=== PATIENT | male | born 1960 | race Caucasian/White ===

== ENCOUNTER 2017-01-30 11:16 | Inpatient (IN) | payer OTHER ==
[2017-01-30] MEDS ORDERED: LIDOCAINE 1% 300 MG/30 ML SDV ONE (11:21)
[2017-01-30] MEDS ORDERED: fentaNYL 100 MCG/2 ML INJ ONE ×2 (11:21→11:47)
[2017-01-30] MEDS ORDERED: MIDAZOLAM 2 MG/2 ML VIAL ONE ×2 (11:22→11:47)
[2017-01-30] MEDS ORDERED: IOPAMIDOL (ISOVUE-370) 150 ML BTL IV ONE ×2 (11:22→12:22)
[2017-01-30] MEDS ORDERED: ASPIRIN 81 MG CHEWABLE TAB PO ONE (11:24)
--- NOTE | 2017-01-30 11:28 | CPEKG ---
Heart Rate: 101 RR Interval: 594 P-R Interval: 160 QRSD Interval: 126 QT Interval: 348 QTC Interval: 452 P [place]: 60 QRS [place]: 101 T Wave [place]: -77 EKG Severity - ABNORMAL ECG - EKG Impression: SINUS TACHYCARDIA EKG Impression: PROBABLE LEFT ATRIAL ABNORMALITY EKG Impression: NONSPECIFIC INTRAVENTRICULAR CONDUCTION DELAY EKG Impression: INFERIOR INFARCT, AGE INDETERMINATE EKG Impression: ST ELEVATION TO ANTERIOR/ANTEROSEPTAL LEADS - ACUTE Electronically Signed By: Sohail Neves 02-Feb-2017 12:19:56
[2017-01-30 11:29] LABS: % IMMATURE GRANULYOCYTES 1.3 % (0.0-1.1); ABSOLUTE IMMATURE GRANULOCYTES 0.09 10^3/uL (0.00-0.10); ADD DIFF? NO; ADD MORPH? NO; ADD SCAN? NO; ATYPICAL LYMPHOCYTE FLAG 10 (0-99); FRAGMENT RBC FLAG 0 (0-99); HEMATOCRIT 48.4 % (40.0-51.0); LEFT SHIFT FLG 10 (0-99); LIPEMIA HEMOLYSIS FLAG 90 (0-99); MEAN CELL HEMOGLOBIN 30.1 pg (27.9-34.1); MEAN CELL HEMOGLOBIN CONCENTR. 35.1 g/dL (32.4-36.7); MEAN CELL VOLUME 85.8 fL (81.5-99.8); PLATELET CLUMPS FLAG 20 (0-99); PLATELET COUNT 217 10^3/uL (150-400); RED BLOOD CELL COUNT 5.64 10^6/uL (4.40-6.38); RED CELL DISTRIBUTION WIDTH 13.3 % (11.5-15.2)
--- NOTE | 2017-01-30 11:36 | EDPHY ---
H & P Time Seen by Provider: 01/30/17 11:23 HPI/ROS: Chief complaint. Chest pain HPI. Patient is a 56-year-old male comes to the emergency department by EMS with cardiac alert. He was walking the [employer] and developed substernal chest pain radiating to his neck. Some shortness of breath. He has a cardiac history and this is similar to previous cardiac problems. The patient felt well during the beginning of the race. He also has shortness of breath. Symptoms are worse with exertion and not relieved now by rest. ROS Constitutional. no fever/chills, no weakness Eyes. no problems with vision ENT. no sore throat, no nasal drainage Cardiovascular. Chest pain Respiratory. Shortness of breath Abdominal. no abdominal pain, no nausea/vomiting, no diarrhea . no problems urinating MS. no calf pain/swelling, no neck/back pain, no joint pain Skin. no rash Lymph. no swollen glands Neuro. no headache, no dizziness, no difficulty walking or with speech Past Medical/Surgical History: Coronary artery bypass graft x2. Last bypass was 2011 Social History: Single, nonsmoker, no alcohol Physical Exam: General Appearance: Alert well-developed male moderate distress vital signs are stable Eyes: Pupils equal and round no pallor or injection. ENT, Mouth: Mucous membranes are moist. Respiratory: There are no retractions, lungs are clear to auscultation. Cardiovascular: Regular rate and rhythm. Gastrointestinal: Abdomen is soft and nontender, no masses, bowel sounds normal. Neurological: Awake and alert, sensory and motor exams grossly normal. Skin: Warm and dry, no rashes. Musculoskeletal: Neck is supple nontender. Extremities symmetrical, full range of motion. Psychiatric: Patient is oriented X 3, there is no agitation. Constitutional: Initial Vital Signs Temperature (C) 36.9 C 01/30/17 11:36 Heart Rate 110 H 01/30/17 11:36 Respiratory Rate 16 01/30/17 11:36 Blood Pressure 131/79 H 01/30/17 11:36 O2 Sat (%) 94 01/30/17 11:36 Allergies/Adverse Reactions: niacin Allergy (Verified 01/30/17 14:50) Hives Home Medications: Medication Instructions Recorded ARIPiprazole [Abilify 5 mg (*)] 7.5 mg PO HS 01/30/17 FENOFIBRATE 160 mg PO HS 01/30/17 Insulin Degludec [Tresiba 60 unit SQ HS 01/30/17 Flextouch U-100] Insulin Lispro [humALOG LISPRO 100 40 unit SC TIDMEAL 01/30/17 units/ml (*)] Lisinopril [Zestril 20 mg (*)] 20 mg PO HS 01/30/17 PARoxetine HCL [Paxil] 40 mg PO HS 01/30/17 Rosuvastatin Calcium [Crestor 40mg 40 mg PO HS 01/30/17 (*)] Medical Decision Making - Diagnostics EKG Interpretation: EKG interpreted by me shows significant ST depression in lateral and anterior leads. No ST elevation. No arrhythmia. Imaging Results: Imaging Impressions Chest X-Ray 01/30/17 11:24 Impression: 1. Cardiomegaly and pulmonary venous hypertension. 2. No effusion or harshal failure. 3. Stigmata of previous open-heart surgery. One-view chest x-ray interpreted by me shows no pneumonia or pneumothorax Procedures: IV normal saline, monitor. Aspirin in the emergency department ED Course/Re-evaluation: I have consulted and discussed case with Dr. Chavez who comes to see the patient in the emergency department. The patient and I discussed EKG findings and need for admission and catheterization lab. He expresses understanding and agreement Differential Diagnosis: The patient has significant ST depression but not ST elevation. However his symptoms are consistent with ischemia. He has had previous coronary artery bypass graft x2. Critical Care Time: Critical care time exclusive procedures 30 minutes - Data Points Laboratory Results: Laboratory Results 01/30/17 11:20 01/30/17 11:20 01/30/17 01/30/17 01/30/17 11:20 11:20 11:20 WBC 6.84 10^3/uL 10^3/uL (3.80-9.50) RBC 5.64 10^6/uL 10^6/uL (4.40-6.38) Hgb 17.0 g/dL g/dL (13.7-17.5) POC Hgb Hct 48.4 % % (40.0-51.0) POC Hct MCV 85.8 fL fL (81.5-99.8) MCH 30.1 pg pg (27.9-34.1) MCHC 35.1 g/dL g/dL (32.4-36.7) RDW 13.3 % % (11.5-15.2) Plt Count 217 10^3/uL 10^3/uL (150-400) MPV 11.0 fL fL (8.7-11.7) Neut % (Auto) 60.9 % % (39.3-74.2) Lymph % (Auto) 23.7 % % (15.0-45.0) Kinney % (Auto) 11.4 % % (4.5-13.0) Eos % (Auto) 1.2 % % (0.6-7.6) Baso % (Auto) 1.5 % % (0.3-1.7) Nucleat RBC Rel Count 0.0 % % (0.0-0.2) Absolute Neuts (auto) 4.17 10^3/uL 10^3/uL (1.70-6.50) Absolute Lymphs (auto) 1.62 10^3/uL 10^3/uL (1.00-3.00) Absolute Monos (auto) 0.78 10^3/uL 10^3/uL (0.30-0.80) Absolute Eos (auto) 0.08 10^3/uL 10^3/uL (0.03-0.40) Absolute Basos (auto) 0.10 10^3/uL 10^3/uL (0.02-0.10) Absolute Nucleated RBC 0.00 10^3/uL 10^3/uL (0-0.01) Immature Gran % 1.3 % H % (0.0-1.1) Immature Gran # 0.09 10^3/uL 10^3/uL (0.00-0.10) PT 13.4 SEC SEC (12.0-15.0) INR 1.03 (0.83-1.16) APTT 26.5 SEC SEC (23.0-38.0) POC Sodium Sodium 134 mEq/L mEq/L (134-144) POC Potassium Potassium 4.3 mEq/L mEq/L (3.5-5.2) POC Chloride Chloride 99 mEq/L mEq/L (97-110) Carbon Dioxide 22 mEq/l mEq/l (22-31) Anion Gap 13 mEq/L mEq/L (8-16) POC BUN BUN 25 mg/dL H mg/dL (7-23) Creatinine 1.3 mg/dL mg/dL (0.7-1.3) POC Creatinine Estimated GFR 57 Glucose 299 mg/dL H mg/dL (70-100) POC Glucose Calcium 9.4 mg/dL mg/dL (8.5-10.4) Troponin I 0.082 ng/mL H ng/mL (0-0.034) NT-Pro-B Natriuret Pep 320 pg/mL H pg/mL (0-125) 01/30/17 11:17 WBC RBC Hgb POC Hgb 16.7 gm/dL gm/dL (14.5-17.3) Hct POC Hct 49 % % (42.8-50.6) MCV MCH MCHC RDW Plt Count MPV Neut % (Auto) Lymph % (Auto) Kinney % (Auto) Eos % (Auto) Baso % (Auto) Nucleat RBC Rel Count Absolute Neuts (auto) Absolute Lymphs (auto) Absolute Monos (auto) Absolute Eos (auto) Absolute Basos (auto) Absolute Nucleated RBC Immature Gran % Immature Gran # PT INR APTT POC Sodium 137 mEq/L mEq/L (134-144) Sodium POC Potassium 4.0 mEq/L mEq/L (3.3-5.0) Potassium POC Chloride 98 mEq/L mEq/L (96-108) Chloride Carbon Dioxide Anion Gap POC BUN 25 mg/dL H mg/dL (7-23) BUN Creatinine POC Creatinine 1.3 mg/dL mg/dL (0.8-1.5) Estimated GFR Glucose POC Glucose 305 mg/dL H mg/dL (70-100) Calcium Troponin I NT-Pro-B Natriuret Pep Medications Given: Discontinued Medications Aspirin (Aspirin) 324 mg PO EDNOW ONE Stop: 01/30/17 11:25 Last Admin: 01/30/17 11:38 Dose: Not Given Point of Care Test Results: 01/30/17 11:17 POC Sodium 137 POC Potassium 4.0 POC Chloride 98 POC BUN 25 H POC Creatinine 1.3 POC Glucose 305 H Departure - Departure Disposition: To OP Cath/Surgery Clinical Impression: Acute GA Qualifiers: Myocardial infarction ST status: non-ST elevation myocardial infarction Qualified Code(s): I21.4 - Non-ST elevation (NSTEMI) myocardial infarction Condition: Fair
[2017-01-30 11:37] LABS: INR 1.03 (0.83-1.16); PROTIME(PATIENT) 13.4 SEC (12.0-15.0)
[2017-01-30 11:38] LABS: APTT 26.5 SEC (23.0-38.0)
[2017-01-30 11:50] LABS: CALCIUM 9.4 mg/dL (8.5-10.4); CARBON DIOXIDE 22 mEq/l (22-31); CHLORIDE 99 mEq/L (97-110); CREATININE 1.3 mg/dL (0.7-1.3); GLOMERULAR FILTRATION RATE 57; GLUCOSE 299 mg/dL (70-100); SODIUM 134 mEq/L (134-144)
[2017-01-30 12:00] LABS: TROPONIN I 0.082 ng/mL (0-0.034)
[2017-01-30 12:03] LABS: ANION GAP 13 mEq/L (8-16); POTASSIUM 4.3 mEq/L (3.5-5.2)
[2017-01-30] MEDS ORDERED: HEPARIN 10,000 UNIT/10 ML MDV ONE (12:24)
[2017-01-30] MEDS ORDERED: NS 1,000 ML IV SCH (15:30)
[2017-01-30] MEDS ORDERED: PARAMETERS MISC PRN (18:27)
[2017-01-30] MEDS ORDERED: D50W 25 GM/50 ML SYR IVP PRN (18:27)
[2017-01-30] MEDS: INSULIN LISPRO 100 UNIT/ML SC SCH (18:31)
[2017-01-30] MEDS: CARVEDILOL 3.125 MG TAB PO SCH (18:31)
--- NOTE | 2017-01-30 18:35 | GCON ---
[f rep st] CONSULTATION DATE OF CONSULTATION: 01/30/2017 CHIEF COMPLAINT: We have been asked by Dr. Tucker to evaluate the patient with a chief complaint o f chest pain. HISTORY OF PRESENT ILLNESS: The patient is a 56-year-old gentleman with known coronary artery disea se who presents with a chief complaint of chest pain. The patient was in his usual state of health until part way through the [employer] when he began to experience chest pain. The patient state s he started out the race and felt just fine walking at a comfortable pace. Throughout the race, he felt the urge to try to run and when he pushed himself harder, he began to experience some chest pr essure and shortness of breath. The chest pressure and shortness of breath gradually became worse, and patient subsequently had a syncopal spell, falling to the ground. He reports, he was only out f or approximately 30 seconds, and was helped up by bystanders. After being helped up by bystanders, he walked to local EMS and reported his symptoms. EMS was activated and he was brought into the cory ency department as a cardiac alert. We were consulted to help in the further management of this p atient. The patient has known coronary artery disease. In 2002, he underwent his 1st coronary artery bypass grafting surgery at the [facility]. At that time, he had a saphenous vein graft placed to his diagonal artery and also had a MEJÍA graft placed to his left anterior descending coronary ar carrillo. In 2011, he developed recurrent anginal symptoms and subsequently underwent a 2nd bypass erin ting surgery at the [facility]. He had a free MADELYN to posterior lateral branch, a saphenous v ein graft to PDA, and a radial artery to the circumflex. The patient did well following the procedu re, until the day of admission. 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 He denied symptoms with his regular walking activity. There is no history of orthopnea or PND. T he patient denies symptoms of palpitations. PAST MEDICAL HISTORY: 1. Coronary artery disease. 2. Hypertension. 3. Hyperlipidemia. 4. Diabetes mellitus. MEDICATIONS: Please see medicine reconciliation form. 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 He does not smoke. He denies alcohol use. FAMILY HISTORY: Noncontributory. REVIEW OF SYSTEMS: 10-point review of systems is negative, except as noted in HPI. PHYSICAL EXAMINATION: GENERAL: The patient is resting in bed. He is continuing to have symptoms o f chest discomfort. He is diaphoretic. VITAL SIGNS: Temperature is afebrile. Pulse is 110, blood pressure is 131/79, respiratory rate is 16, SaO2 is 94% on 2 L nasal cannula. HEENT: Patient does have evidence of trauma along the bridge of his nose. Extraocular muscles intact. NECK: No JVD. No bruits. LUNGS: Clear to auscultation bilaterally. CARDIOVASCULAR: Regular rate and rhythm S1 , S2. Grade 2/6 holosystolic murmur is noted at the left sternal border. ABDOMEN: Obese, nontende r. Normoactive bowel sounds. No hepatosplenomegaly appreciated. EXTREMITIES: No clubbing, cyanos is, or edema. SKIN: No evidence of rash. NEURO: Patient is awake, alert and oriented x3. LABORATORY: White blood cell count is 6.84, hemoglobin 17.0, hematocrit is 48.4, platelet count is 217. INR is 1.03. Sodium 134, potassium 4.3, chloride 99, BUN 25, creatinine 1.3. Troponin 0.082. EKG demonstrates sinus rhythm, normal AXIS, normal intervals. Inferior Q-waves suggestive of previo us myocardial infarction. ST-segment elevation in lead III; however, there was no corresponding ST- elevation in II and aVF. The patient also has ST-elevation in aVR as well as V1. There is also ass ociated diffuse ST-segment depression. ASSESSMENT AND PLAN: The patient is a 56-year-old gentleman with: 1. Acute coronary syndrome. 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 His EKG demonstrates ST-segment elevation in leads III, aVR and V1, suggesting possible right-sided acute injury. The patient also has diffuse ST-segm ent depression, concerning for global ischemia. Reviewed risks and benefits of cardiac catheterizat ion for risk stratification. Will arrange to have this performed emergently. 2. Hypertension. 3. Hyperlipidemia. 4. Diabetes mellitus. /[id number]/MODL
--- NOTE | 2017-01-30 19:10 | CPIP ---
[f rep st] INVASIVE CARDIAC PROCEDURE DATE OF PROCEDURE: 01/30/2017 PROCEDURE: 1. Coronary angiography. 2. Left ventriculography. 3. Aortography. 4. Bypass graft angiography. INDICATION: 1. Acute coronary syndrome. 2. Syncope. ACCESS: Patient was prepped and draped in a sterile fashion. 1% lidocaine was used to anesthetize the right inguinal region. A 6-Czech introducer sheath was placed selectively in the right common femoral artery via modified Seldinger technique. CORONARY ANGIOGRAPHY: A 6-Czech JL4 was advanced to the left main coronary artery and images obtai kathryn. The left main coronary artery bifurcated into an LAD and circumflex coronary arteries. The mi d to distal left main coronary artery had a single discrete 80% to 90% stenosis present. The proxim al left anterior descending coronary artery had a long segmental 80% stenosis present. In the mid v essel there is a single discrete total occlusion. The circumflex coronary artery had a 100% total o cclusion in the mid vessel. A 6-Czech JR4 was advanced to the right coronary artery and images obt ained. The right coronary artery was diffusely diseased. In the proximal segment there is a single discrete 50% stenosis, in the mid vessel there is a long segmental 20% to 30% stenosis present, and in the mid to distal vessel there is a single discrete 100% total occlusion. The right coronary ar carrillo is being filled by MEJÍA at RCA collaterals, as well as right to right collaterals. BYPASS GRAFT ANGIOGRAPHY: A 6-Czech JR4 was used to engage the radial to the circumflex graft. Th e radial to circumflex graft was 100% occluded, and appeared to be a chronic total occlusion. A 6-F rench multipurpose catheter was used to engage the saphenous vein graft to right coronary artery. T he saphenous vein graft to right coronary artery was totally occluded and appeared to be a chronic t otal occlusion. A 6-Czech JR4 was used to engage the MEJÍA to LAD graft. The MEJÍA to LAD graft was widely patent. THORACIC AORTOGRAPHY: A 6-Czech pigtail catheter was advanced into the ascending aorta, and positi on verified by angiography. Images were obtained via power injection through the [employer] system. Th e ascending aorta did not appear to have any patent grafts coming off it. A 6-Czech JR4 was used t o non-selectively engage the MADELYN artery. The MADELYN artery is widely patent. In the midvessel the g raft appeared to have been harvested for bypass surgery. DESCENDING THORACIC AORTOGRAPHY: A 6-Czech pigtail catheter was placed in the descending thoracic aorta, and images were obtained via power injection through the [employer] system. There was no evidenc e of a gastroepiploic graft. LEFT VENTRICULOGRAPHY: A 6-Czech pigtail catheter is advanced into the left ventricle and images o btained. The left ventricle appeared to be normal in size with reduced systolic function. Estimate d ejection fraction was 35% to 40%. The inferior wall appeared to be akinetic. COMPLICATIONS: None. CONCLUSIONS: 1. 3-vessel coronary artery disease. 2. Patent left internal mammary artery to left anterior descending graft. 3. Occluded saphenous vein graft to right coronary artery. 4. Occluded free right internal mammary artery to left posterior lateral. 5. Occluded radial to the circumflex coronary artery. 6. Saphenous vein graft to diagonal artery is known to be occluded previously, and was not injected . /[id number]/MODL
[2017-01-30 20:21] LABS: CK-MB INTERPRETATION POSITIVE (NEGATIVE)
[2017-01-30] MEDS: LISINOPRIL 20 MG TAB PO SCH (21:13)
[2017-01-30] MEDS: ROSUVASTATIN CALCIUM 40 MG TAB PO SCH (21:13)
[2017-01-30] MEDS: FENOFIBRATE 145 MG TAB PO SCH (21:13)
[2017-01-30] MEDS: PARoxetine HCL 20 MG TAB PO SCH (21:13)
[2017-01-30] MEDS: ARIPiprazole 5 MG TAB PO SCH (21:14)
[2017-01-30] MEDS: Insulin Degludec [Tresiba Flextouch U-100] 60 UNIT SQ SCH (21:15)
[2017-01-31 03:53] LABS: % IMMATURE GRANULYOCYTES 0.7 % (0.0-1.1); ABSOLUTE IMMATURE GRANULOCYTES 0.06 10^3/uL (0.00-0.10); ABSOLUTE NRBC COUNT 0.02 10^3/uL (0-0.01); ADD DIFF? NO; ADD MORPH? NO; ADD SCAN? NO; ATYPICAL LYMPHOCYTE FLAG 0 (0-99); FRAGMENT RBC FLAG 0 (0-99); HEMATOCRIT 49.4 % (40.0-51.0); HEMOGLOBIN 17.3 g/dL (13.7-17.5); LEFT SHIFT FLG 0 (0-99); LIPEMIA HEMOLYSIS FLAG 90 (0-99); MEAN CELL HEMOGLOBIN 30.5 pg (27.9-34.1); MEAN PLATELET VOLUME 10.9 fL (8.7-11.7); NRBC-AUTO% 0.2 % (0.0-0.2); PLATELET CLUMPS FLAG 0 (0-99); PLATELET COUNT 193 10^3/uL (150-400); RED BLOOD CELL COUNT 5.68 10^6/uL (4.40-6.38); RED CELL DISTRIBUTION WIDTH 13.8 % (11.5-15.2)
[2017-01-31 04:08] LABS: ALANINE AMINOTRANSFERASE 55 IU/L (21-72); ALBUMIN 3.8 g/dL (3.5-5.0); ALKALINE PHOSPHATASE 49 IU/L (38-126); ANION GAP 7 mEq/L (8-16); ASPARTATE AMINOTRANSFERASE 124 IU/L (17-59); BILIRUBIN,TOTAL 0.8 mg/dL (0.1-1.4); BILIRUBIN-CONJUGATED 0.4 mg/dL (0.0-0.5); BILIRUBIN-UNCONJUGATED 0.4 mg/dL (0.0-1.1); CARBON DIOXIDE 26 mEq/l (22-31); CHLORIDE 105 mEq/L (97-110); CHOLESTEROL 226 mg/dL (140-220); CHOLESTEROL/HDL RATIO 7.79 RATIO (1.00-4.97); GLOMERULAR FILTRATION RATE > 60; GLUCOSE 118 mg/dL (70-100); HIGH DENSITY LIPOPROTEIN 29 mg/dL (40-65); NON-HIGH DENSITY LIPOPROTEIN 197 mg/dL (90-129); POTASSIUM 3.8 mEq/L (3.5-5.2); SODIUM 138 mEq/L (134-144); TOTAL PROTEIN 6.9 g/dL (6.3-8.2)
[2017-01-31 04:16] LABS: TRIGLYCERIDE 620 mg/dL (40-150)
[2017-01-31 04:33] LABS: CK-MB INTERPRETATION POSITIVE (NEGATIVE)
[2017-01-31] MEDS: CARVEDILOL 3.125 MG TAB PO SCH ×2 (08:19→18:05)
[2017-01-31] MEDS: INSULIN LISPRO 100 UNIT/ML SC SCH ×3 (08:23→18:03)
--- NOTE | 2017-01-31 11:34 | ECHO ---
[id number] + + [address] : : [place] [address] : : [phone] + Adult Echocardiographic Report + ----+ :Name: Martha SAHU Date: 01/31/2017 08:29 AM : : Hospital Admission Number: [id number] Location: 250: :: 1960 Gender: Male Height: 72 in : :Age: 56 yrs Race: PTNP Weight: 235 lb : :Reason For Study: Eval LV Fx : : BSA: 2.3 meters2 : :History: Chest Pain, CABG : + ----+ MMode/2D Measurements \T\ Calculations IVSd: 0.79 cm LVIDd: 5.4 cm FS: 14.6 % Ao root diam: LVPWd: 0.92 cm LVIDs: 4.6 cm EDV(Teich): 3.5 cm 140.6 ml ACS: 2.1 cm ESV(Teich): 97.3 ml EF(Teich): 30.7 % LVLd ap4: 8.7 cm SV(MOD-sp4): EDV(MOD-sp4): 56.0 ml 168.0 ml LVLs ap4: 7.9 cm ESV(MOD-sp4): 112.0 ml EF(MOD-sp4): 33.3 % Normal Measurement Values: + + :LVIDd (3.5-5.7cm) IVSd (0.6-1.1cm) LVPWd (0.6-1.1cm) Aortic Root (2.0-3.7cm)Left Atrium (1.5-4.0cm): :LV Vol(d) (76-115ml) LV Vol(s) (29-48ml) Ejec Fraction (50-65%)PV Tank (0.6- 1.2m/s) TV Tank (0.4-1.0m/s) : :MV E Tank (0.8-1.0m/s)MV A Tank (0.3-1.0m/s)LVOT Tank (0.7-1.2m/s) Asc Ao Tank ( 0.9-1.8m/s) : + + Doppler Measurements \T\ Calculations MV E max tank: Ao V2 max: LV V1 max: PA V2 max: 96.7 cm/sec 122.2 cm/sec 96.3 cm/sec 104.5 cm/sec MV A max tank: Ao max P.0 mmHgLV V1 max PG: PA max P.4 mmHg 76.5 cm/sec 3.7 mmHg MV E/A: 1.3 Left Ventricle The left ventricle is normal in size. There is normal left ventricular wall thickness. There is basilar anteroseptal akinesis, basilar to mid inferolateral hypokinesis. There is inferior hypokinesis. Ejection Fraction = 35-40%. Right Ventricle The right ventricle is normal in size and function. Atria The left atrial size is normal. Right atrial size is normal. Mitral Valve The mitral valve is normal in structure and function. There is no evidence of mitral valve prolapse. There is no mitral valve stenosis. There is no mitral regurgitation noted. Tricuspid Valve Normal tricuspid valve. No tricuspid regurgitation. Aortic Valve The aortic valve is normal in structure and function. The aortic valve is trileaflet. There is no aortic stenosis. There is no aortic insufficiency. Pulmonic Valve The pulmonic valve is normal in structure and function. There is no pulmonic valvular regurgitation. Great Vessels The aortic root is normal size. Pericardium/Pleural There is no pericardial effusion. Conclusion A complete two-dimensional transthoracic echocardiogram was performed (2D, M-mode, Doppler and color flow Doppler). There is basilar anteroseptal akinesis, basilar to mid inferolateral hypokinesis. There is inferior hypokinesis Ejection Fraction = 35-40%. The mitral valve is normal in structure and function. The aortic valve is normal in structure and function. There is no pericardial effusion. Final Reading Physician: Darcie Sorenson signed on 01/31/2017 11:32 AM Ordering Physician: Sohail Chavez Performed By: Kenneth Gibbs, LEANACS
[2017-01-31] MEDS ORDERED: ACETAMINOPHEN 325 MG TAB PO PRN (14:13)
[2017-01-31] MEDS ORDERED: NITROGLYCERIN 0.4 MG BTL SL PRN (16:27)
[2017-01-31] MEDS ORDERED: TEMAZEPAM 15 MG CAP PO PRN (16:27)
--- NOTE | 2017-01-31 16:32 | SOAPPROG ---
[facility] Progress Note Assessment/Plan: Assessment: 1. Status post syncope/aborted sudden . 2. STEMI myocardial infarction. 3. Severe grindstone three-vessel coronary artery disease with patent mammary artery to the LAD. 4. Ischemic cardiomyopathy ejection fraction 35-40%. 5. Hyperlipidemia characterized by elevation in triglycerides, low LDL. 6. Type 1 diabetes Impression: After reviewing diagnostic angiograms in reviewing metabolic profile. Would recommend attempted complete revascularization with PCI and stenting of the left main coronary artery into the circumflex. This with optimal medical therapy would create the best result at this time. Pending improvement in LV function considerations for ICD. In the short term would recommend life vest in light of presentation. Discussed this with the patient' s family. Will proceed in the morning. Plan: Optimization of medical therapy. Up titration of Coreg. Optimization of statin therapy. PCI and stenting of the left main coronary artery. Life vest. 01/31/17 16:33 01/31/17 16:35 Subjective: Patient doing well status post presentation yesterday with angina and cardiac syncope. No further cardiac events. Telemetry overnight has been stable. Patient denies chest pain, shortness of breath, PND, orthopnea. 45 minutes spent today discussing patient's past medical history. Cardiac review of systems is negative for chest pain, shortness of breath, PND , orthopnea, palpitations, syncope, near syncope, edema. Objective: Medications Generic Name Dose Route Start Last Admin Trade Name Freq PRN Reason Stop Dose Admin Fenofibrate 145 mg 01/30/17 21:00 01/30/17 21:13 Tricor PO 07/29/17 20:59 145 mg HS [facility] Carvedilol 3.125 mg 01/30/17 18:00 01/31/17 08:19 Coreg PO 07/29/17 17:59 3.125 mg BIDMEAL DANIEL Lisinopril 20 mg 01/30/17 21:00 01/30/17 21:13 Zestril PO 07/29/17 20:59 20 mg HS DANIEL Rosuvastatin Calcium 40 mg 01/30/17 21:00 01/30/17 21:13 Crestor PO 07/29/17 20:59 40 mg HS [facility] Vital Signs Temp Pulse Resp BP Pulse Ox 36.1 C 63 19 110/60 91 L 01/31/17 08:00 01/31/17 16:00 01/31/17 16:00 01/31/17 16:00 01/31/17 16:00 Laboratory Results 01/31/17 03:40 01/31/17 03:40 01/30/17 01/31/17 02/01/17 05:59 05:59 05:59 Intake Total 2330 Balance 2330 PT 13.4 SEC (12.0-15.0) 01/30/17 11:20 INR 1.03 (0.83-1.16) 01/30/17 11:20 Laboratory Tests 01/30/17 01/30/17 01/31/17 11:20 19:15 03:40 Creatine Kinase 586 H 532 H Troponin I 0.082 H NT-Pro-B Natriuret Pep 320 H Triglycerides 620 H Cholesterol 226 H HDL Cholesterol 29 L - Time Spent With Patient Time Spent With Patient: 45 minutes Physical Exam - Physical Exam General Appearance: alert, no apparent distress EENT: PERRL/EOMI Neck: non-tender Respiratory: chest non-tender, lungs clear Cardiac/Chest: normal peripheral pulses, regular rate, rhythm, No edema, No gallop, No JVD Peripheral Pulses: 1+: carotid (R), carotid (L) Abdomen: normal bowel sounds, non-tender, soft Back: Normal inspection Skin: normal color, warm/dry, No cyanosis Lymphatic: no adenopathy Extremities: normal range of motion, No pedal edema, No calf tenderness Neuro/Psych: no motor/sensory deficits, alert, normal mood/affect, oriented x 3 ICD10 Worksheet Patient Problems: Problems Problem Status Onset Acute AK Acute Review of Systems - Review of Systems Constitutional: denies: chills, fever EENTM: no symptoms reported Respiratory: no symptoms reported Cardiac: no symptoms reported Gastrointestinal/Abdominal: no symptoms reported Genitourinary: no symptoms Musculoskelatal: no symptoms Skin: no symptoms Neurological: no symptoms Hematologic/Lymphatic: no symptoms reported Immunologic/allergic: no symptoms reported Past Medical History - Medical/Surgical History Hx Asthma: No Hx Chronic Respiratory Disease: No Hx Cardiac Disease: Yes Hx Diabetes: Yes Hx Renal Disease: No Hx Alcoholism: No Hx Cirrhosis: No Hx HIV/AIDS: No Hx Splenectomy or Spleen Trauma: No Other PMH: CABG, DM2, pancreatitis - Social History Smoking Status: Never smoked
[2017-01-31] MEDS: PARoxetine HCL 20 MG TAB PO SCH (21:29)
[2017-01-31] MEDS: ROSUVASTATIN CALCIUM 40 MG TAB PO SCH (21:29)
[2017-01-31] MEDS: ARIPiprazole 5 MG TAB PO SCH (21:29)
[2017-01-31] MEDS: FENOFIBRATE 145 MG TAB PO SCH (21:29)
[2017-01-31] MEDS: LISINOPRIL 20 MG TAB PO SCH (21:29)
[2017-01-31] MEDS: Insulin Degludec [Tresiba Flextouch U-100] 60 UNIT SQ SCH (21:30)
[2017-02-01] MEDS ORDERED: diphenhydrAMINE 25 MG CAP PO ONE (06:00)
[2017-02-01] MEDS ORDERED: ASPIRIN EC 325 MG TAB PO ONE (06:00)
[2017-02-01] MEDS ORDERED: DIAZEPAM 5 MG TAB PO ONE (06:00)
[2017-02-01 06:09] LABS: % IMMATURE GRANULYOCYTES 0.4 % (0.0-1.1); ABSOLUTE IMMATURE GRANULOCYTES 0.03 10^3/uL (0.00-0.10); ADD DIFF? NO; ADD MORPH? NO; ADD SCAN? NO; ATYPICAL LYMPHOCYTE FLAG 0 (0-99); FRAGMENT RBC FLAG 0 (0-99); HEMATOCRIT 45.2 % (40.0-51.0); HEMOGLOBIN 15.3 g/dL (13.7-17.5); LEFT SHIFT FLG 0 (0-99); LIPEMIA HEMOLYSIS FLAG 90 (0-99); MEAN CELL HEMOGLOBIN 29.5 pg (27.9-34.1); MEAN CELL HEMOGLOBIN CONCENTR. 33.8 g/dL (32.4-36.7); MEAN CELL VOLUME 87.1 fL (81.5-99.8); MEAN PLATELET VOLUME 11.4 fL (8.7-11.7); PLATELET CLUMPS FLAG 10 (0-99); PLATELET COUNT 176 10^3/uL (150-400); RED BLOOD CELL COUNT 5.19 10^6/uL (4.40-6.38); RED CELL DISTRIBUTION WIDTH 13.9 % (11.5-15.2)
[2017-02-01 06:17] LABS: APTT 26.9 SEC (23.0-38.0); INR 1.11 (0.83-1.16); PROTIME(PATIENT) 14.2 SEC (12.0-15.0)
[2017-02-01 06:59] LABS: ANION GAP 6 mEq/L (8-16); CALCIUM 8.5 mg/dL (8.5-10.4); CARBON DIOXIDE 24 mEq/l (22-31); CHLORIDE 105 mEq/L (97-110); CHOLESTEROL 161 mg/dL (140-220); CREATININE 0.8 mg/dL (0.7-1.3); GLOMERULAR FILTRATION RATE > 60; GLUCOSE 242 mg/dL (70-100); HIGH DENSITY LIPOPROTEIN 23 mg/dL (40-65); MAGNESIUM 1.7 mg/dL (1.6-2.3); NON-HIGH DENSITY LIPOPROTEIN 138 mg/dL (90-129); POTASSIUM 4.5 mEq/L (3.5-5.2); SODIUM 135 mEq/L (134-144)
[2017-02-01 07:03] LABS: TRIGLYCERIDE 451 mg/dL (40-150)
[2017-02-01] MEDS ORDERED: LIDOCAINE 1% 300 MG/30 ML SDV ONE (07:37)
[2017-02-01] MEDS ORDERED: VERAPAMIL 5 MG/2 ML VIAL ONE (07:38)
[2017-02-01] MEDS ORDERED: IOPAMIDOL (ISOVUE-370) 150 ML BTL IV ONE ×2 (07:38→08:40)
[2017-02-01] MEDS ORDERED: HEPARIN 10,000 UNIT/10 ML MDV ONE ×2 (07:38→08:26)
[2017-02-01] MEDS ORDERED: MIDAZOLAM 2 MG/2 ML VIAL ONE (07:46)
[2017-02-01] MEDS ORDERED: fentaNYL 100 MCG/2 ML INJ ONE (07:46)
[2017-02-01] MEDS ORDERED: NITROGLYCERIN 1,500 MCG/15 ML VIAL MISC ONE (08:49)
[2017-02-01] MEDS ORDERED: PRASUGREL HCL 10 MG TAB ONE (09:09)
[2017-02-01] MEDS ORDERED: ATROPINE SULFATE 1 MG/10 ML SYR IVP PRN (09:34)
[2017-02-01] MEDS ORDERED: PRASUGREL HCL 10 MG TAB PO ONE (09:34)
[2017-02-01] MEDS ORDERED: ONDANSETRON 4 MG/2 ML VIAL IVP PRN (09:34)
--- NOTE | 2017-02-01 09:34 | PDDXCAT ---
Diagnostic Cath Note - . 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 Intravascular ultrasound pre intervention. Indications: ST segment elevation myocardial infarction suggesting left main etiology. After reviewing diagnostic angiogram by my partner elected to proceed with elective stenting of the left main proximal circumflex today. Patient was brought to the cardiac catheterization lab in the fasting state. The right radial artery site was sterilely prepped and draped. 6 Bengali slick sheath was inserted in the right radial artery. Patient was administered verapamil and heparin. The left main coronary artery was successfully intubated using a left extra support radial guide catheter. A standard JL4 catheter did not fit well. The lesion was wired initially using a 0.014 intuition wire. Pre dilatation of the left main was performed with a 2 mm balloon. Repeat angiogram showed JAZMINE grade 3 flow. Intravascular ultrasound was attempted but the wire kinked. The entire system was withdrawn. The lesion was rewired using a 0.014 luge wire. Intravascular ultrasound revealed left main to be 4 mm. Proximal circumflex was 85% stenosis. There was diffuse distal disease. It was elected to proceed with distal stenting 1st a 3.0 x 12 mm synergy stent was placed in the circumflex origin. It was deployed using a single inflation. A 4.0 x 8 mm synergy stent was placed across the left main stenosis and deployed in a single inflation. Repeat angiogram showed JAZMINE grade 3 flow. Patient was administered intracoronary nitroglycerin. Final orthogonal angiograms were obtained. Patient has taken recovery for continued care. Conclusions: Successful revascularization with PCI and stenting of the left main and proximal circumflex. Patient will be continued on current medical therapy with dual antiplatelet therapy for 1 year. Reassessment of LV function at 40 days and considerations for ICD. Discharge with LifeVest. Patient Problems: Problems Problem Status Onset Acute [place] Acute
--- NOTE | 2017-02-01 09:40 | SOAPPROG ---
[facility] Progress Note Assessment/Plan: Assessment: 1. Status post syncope/aborted sudden . 2. STEMI myocardial infarction. 3. Severe [place] three-vessel coronary artery disease with patent mammary artery to the LAD. Successful PCI and stenting of the left main and proximal circumflex 02/01. 4. Ischemic cardiomyopathy ejection fraction 35-40%. 5. Hyperlipidemia characterized by elevation in triglycerides, low LDL. 6. Type 1 diabetes Impression: After reviewing diagnostic angiograms in reviewing metabolic profile. Would recommend attempted complete revascularization with PCI and stenting of the left main coronary artery into the circumflex. This with optimal medical therapy would create the best result at this time. Pending improvement in LV function considerations for ICD. In the short term would recommend life vest in light of presentation. Discussed this with the patient' s family. Will proceed in the morning. Plan: Optimization of medical therapy. Up titration of Coreg. Optimization of statin therapy. PCI and stenting of the left main coronary artery. Life vest. 01/31/17 16:35 Impression: Successful revascularization today of the left main and proximal circumflex. Uneventful hall monitor overnight. Patient is overall feeling well. Plan to continue dual antiplatelet therapy for 1 year. Increased beta-martin today. Awaiting decision regarding LifeVest. Plan: Continue dual antiplatelet therapy for 1 year. Up titrate beta-martin. Life vest for boarded sudden and ischemic cardiomyopathy status post left main stenting. Discussed weight loss today and aggressive treatment of hyperlipidemia particular elevated triglycerides. Will begin high-dose fish oil today. 02/01/17 09:37 Subjective: Doing well. Risks and benefits of PCI have been discussed. Life vest has been discussed. There is some concern regarding payment for device. Social Work is helping. Cardiac review of systems is negative for chest pain, shortness of breath, PND , orthopnea, palpitations, syncope, near syncope, edema. Objective: Medications Generic Name Dose Route Start Last Admin Trade Name Freq PRN Reason Stop Dose Admin Carvedilol 3.125 mg 01/30/17 18:00 01/31/17 18:05 Coreg PO 07/29/17 17:59 3.125 mg BIDMEAL DANIEL Fenofibrate 145 mg 01/30/17 21:00 01/31/17 21:29 Tricor PO 07/29/17 20:59 145 mg HS DANIEL Lisinopril 20 mg 01/30/17 21:00 01/31/17 21:29 Zestril PO 07/29/17 20:59 20 mg HS DANIEL Vital Signs Temp Pulse Resp BP Pulse Ox 36.4 C 73 16 101/62 95 02/01/17 04:00 02/01/17 04:00 02/01/17 04:00 02/01/17 04:00 02/01/17 04:00 Laboratory Results 02/01/17 05:45 02/01/17 05:45 01/31/17 02/01/17 02/02/17 05:59 05:59 05:59 Intake Total 2330 650 Balance 2330 650 PT 14.2 SEC (12.0-15.0) 02/01/17 05:45 INR 1.11 (0.83-1.16) 02/01/17 05:45 Laboratory Tests 02/01/17 05:45 Creatinine 0.8 Physical Exam - Physical Exam General Appearance: alert, no apparent distress EENT: PERRL/EOMI Neck: non-tender, full range of motion Respiratory: chest non-tender, lungs clear Cardiac/Chest: normal peripheral pulses, regular rate, rhythm, No edema, No gallop, No JVD Peripheral Pulses: 1+: carotid (R), carotid (L), femoral (R), femoral (L) Abdomen: normal bowel sounds, non-tender Back: Normal inspection Skin: normal color, warm/dry Extremities: No pedal edema, No calf tenderness Neuro/Psych: no motor/sensory deficits, alert, normal mood/affect ICD10 Worksheet Patient Problems: Problems Problem Status Onset Acute [place] Acute Past Medical History - Medical/Surgical History Hx Asthma: No Hx Chronic Respiratory Disease: No Hx Cardiac Disease: Yes Hx Diabetes: Yes Hx Renal Disease: No Hx Alcoholism: No Hx Cirrhosis: No Hx HIV/AIDS: No Hx Splenectomy or Spleen Trauma: No Other PMH: CABG, DM2, pancreatitis - Social History Smoking Status: Never smoked Alcohol Use: None Review of Systems - Review of Systems Constitutional: no symptoms reported EENTM: no symptoms reported Respiratory: no symptoms reported Cardiac: no symptoms reported Gastrointestinal/Abdominal: no symptoms reported Genitourinary: no symptoms Musculoskelatal: no symptoms Skin: no symptoms Neurological: no symptoms Hematologic/Lymphatic: no symptoms reported
--- NOTE | 2017-02-01 09:48 | CPEKG ---
Heart Rate: 70 RR Interval: 857 P-R Interval: 164 QRSD Interval: 114 QT Interval: 392 QTC Interval: 423 P [place]: 47 QRS [place]: 33 T Wave [place]: 43 EKG Severity - ABNORMAL ECG - EKG Impression: SINUS RHYTHM EKG Impression: PROBABLE LEFT ATRIAL ABNORMALITY EKG Impression: NONSPECIFIC INTRAVENTRICULAR CONDUCTION DELAY EKG Impression: PROBABLE INFERIOR INFARCT, AGE INDETERMINATE EKG Impression: ST ELEVATION TO ANTERIOR/ANTEROSEPTAL LEADS Electronically Signed By: Sohail Neves 02-Feb-2017 12:20:21
[2017-02-01] MEDS: INSULIN LISPRO 100 UNIT/ML SC SCH ×3 (10:51→17:21)
[2017-02-01] MEDS ORDERED: LORazepam 0.5 MG TAB PO ONE ×2 (11:00→12:15)
[2017-02-01] MEDS: CARVEDILOL 3.125 MG TAB PO SCH (11:31)
--- NOTE | 2017-02-01 13:06 | CPEKG ---
Heart Rate: 103 RR Interval: 583 P-R Interval: 192 QRSD Interval: 118 QT Interval: 356 QTC Interval: 466 P [place]: 53 QRS [place]: 48 T Wave [place]: 241 EKG Severity - ABNORMAL ECG - EKG Impression: SINUS TACHYCARDIA EKG Impression: PROBABLE LEFT ATRIAL ABNORMALITY EKG Impression: NONSPECIFIC INTRAVENTRICULAR CONDUCTION DELAY EKG Impression: PROBABLE INFERIOR INFARCT, AGE INDETERMINATE EKG Impression: ANTERIOR ST ELEVATION NOTED Electronically Signed By: Sohail Neves 02-Feb-2017 12:20:47
[2017-02-01] MEDS ORDERED: ASPIRIN 325 MG TAB ONE (13:18)
[2017-02-01] MEDS ORDERED: FUROSEMIDE 20 MG/2 ML VIAL ONE (13:30)
[2017-02-01] MEDS ORDERED: FUROSEMIDE 20 MG/2 ML VIAL IVP ONE (13:47)
[2017-02-01] MEDS ORDERED: LORazepam 1 MG TAB PO ONE (13:47)
--- NOTE | 2017-02-01 13:49 | PDCONSULT ---
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 Ayush status post left main stenting with stents into the ione circumflex. Patient complained of episodes of shortness of breath. Initially thought it was a panic attack. He has had these in the past. Patient has been administered a single nitroglycerin and Ativan and is feeling a bit better on my arrival. Patient denies angina which she is well-versed in. He has no PND orthopnea. He is not currently diaphoretic. Physical examination vital signs as above. There is no JVP 90 degrees. Chest reveals bibasilar rales. Cardiac exam reveals no gallop. Puncture site is stable without ecchymosis erythema. Stat EKG reveals sinus rhythm ST elevation in AV are has resolved. Minimal ST depression is seen laterally. This is improved from admission EKG. Stat echocardiogram reveals reduced LV systolic function unchanged. Mitral regurgitation has improved. There is no pericardial effusion. Impression: Episodes of shortness of breath of uncertain etiology. I do not think this represents complication from recent PCI and stenting of the left main circumflex. EKG does not suggest acute injury pattern. He does have a history of intermittent panic attacks which may be etiology here. Exam does suggest bibasilar rales which could be some pulmonary edema after recent dye load and left main stenting. Recommendation: Ativan for anxiety. Lasix for pulmonary edema. Serial follow-up on telemetry. Low tolerance for repeat coronary angiogram.
--- NOTE | 2017-02-01 14:52 | ECHO ---
[id number] + + [address] : : [facility] [address] : : [phone] + Adult Echocardiographic Report + ----+ :Name: Martha SAHU Date: 02/01/2017 02:05 PM : : Hospital Admission Number: [id number] Location: 200: :: 1960 Gender: Male : :Age: 56 yrs Race: WH,PTNP : :Reason For Study: Eval LV Fx : :History: Abnormal EKG : + ----+ Left Ventricle There is basilar anteroseptal akinesis, basilar to mid inferolateral hypokinesis. There is inferior hypokinesis. Ejection Fraction = 35-40%. Mitral Valve There is mild mitral regurgitation. Pericardium/Pleural There is no pericardial effusion. Conclusion This is a limited echo to eval LV Fx. There is basilar anteroseptal akinesis, basilar to mid inferolateral hypokinesis. There is inferior hypokinesis. Ejection Fraction = 35-40%. There is no pericardial effusion. There is mild mitral regurgitation. Final Reading Physician: Darcie Singleton signed on 02/01/2017 02:50 PM Ordering Physician: Sohail Chavez Performed By: Kenneth Gibbs, LEANACS
[2017-02-01] MEDS: CARVEDILOL 6.25 MG TAB PO SCH (17:25)
[2017-02-01] MEDS: PARoxetine HCL 20 MG TAB PO SCH (22:06)
[2017-02-01] MEDS: FENOFIBRATE 145 MG TAB PO SCH (22:06)
[2017-02-01] MEDS: LISINOPRIL 20 MG TAB PO SCH (22:06)
[2017-02-01] MEDS: ROSUVASTATIN CALCIUM 40 MG TAB PO SCH (22:06)
[2017-02-01] MEDS: Insulin Degludec [Tresiba Flextouch U-100] 60 UNIT SQ SCH (22:07)
[2017-02-01] MEDS: ARIPiprazole 5 MG TAB PO SCH (22:07)
[2017-02-02 04:57] LABS: % IMMATURE GRANULYOCYTES 0.5 % (0.0-1.1); ABSOLUTE IMMATURE GRANULOCYTES 0.04 10^3/uL (0.00-0.10); ADD DIFF? NO; ADD MORPH? NO; ADD SCAN? NO; ATYPICAL LYMPHOCYTE FLAG 0 (0-99); FRAGMENT RBC FLAG 0 (0-99); HEMATOCRIT 48.6 % (40.0-51.0); HEMOGLOBIN 16.3 g/dL (13.7-17.5); LEFT SHIFT FLG 0 (0-99); LIPEMIA HEMOLYSIS FLAG 80 (0-99); MEAN CELL HEMOGLOBIN 29.8 pg (27.9-34.1); MEAN CELL HEMOGLOBIN CONCENTR. 33.5 g/dL (32.4-36.7); MEAN CELL VOLUME 88.8 fL (81.5-99.8); MEAN PLATELET VOLUME 11.1 fL (8.7-11.7); PLATELET CLUMPS FLAG 0 (0-99); PLATELET COUNT 182 10^3/uL (150-400); RED BLOOD CELL COUNT 5.47 10^6/uL (4.40-6.38)
[2017-02-02 05:00] LABS: APTT 28.2 SEC (23.0-38.0); INR 1.11 (0.83-1.16); PROTIME(PATIENT) 14.2 SEC (12.0-15.0)
[2017-02-02] MEDS ORDERED: diphenhydrAMINE 25 MG CAP PO ONE (06:00)
[2017-02-02] MEDS ORDERED: BACITRACIN IRRIGATION/NS 50,000 UNITS/1,000 ML BTL IRR ONE (06:00)
[2017-02-02] MEDS ORDERED: DIAZEPAM 5 MG TAB PO ONE (06:00)
[2017-02-02] MEDS ORDERED: NS 1,000 ML IV ONE (06:00)
[2017-02-02 06:21] LABS: ALANINE AMINOTRANSFERASE 45 IU/L (21-72); ALBUMIN 3.4 g/dL (3.5-5.0); ALKALINE PHOSPHATASE 46 IU/L (38-126); ANION GAP 8 mEq/L (8-16); ASPARTATE AMINOTRANSFERASE 39 IU/L (17-59); BILIRUBIN,TOTAL 0.8 mg/dL (0.1-1.4); CALCIUM 8.9 mg/dL (8.5-10.4); CARBON DIOXIDE 25 mEq/l (22-31); CHLORIDE 105 mEq/L (97-110); GLOMERULAR FILTRATION RATE > 60; GLUCOSE 181 mg/dL (70-100); LACTATE DEHYDROGENASE 746 IU/L (313-618); MAGNESIUM 1.9 mg/dL (1.6-2.3); POTASSIUM 4.4 mEq/L (3.5-5.2); SODIUM 138 mEq/L (134-144)
[2017-02-02] MEDS ORDERED: ceFAZolin 2 GM/DEXTROSE 100 ML IV ONE (07:00)
--- NOTE | 2017-02-02 07:50 | SOAPPROG ---
[facility] Progress Note Assessment/Plan: Assessment: 1. Status post syncope/aborted sudden . 2. STEMI myocardial infarction. 3. Severe [place] three-vessel coronary artery disease with patent mammary artery to the LAD. Successful PCI and stenting of the left main and proximal circumflex 02/01. 4. Ischemic cardiomyopathy ejection fraction 35-40%. 5. Hyperlipidemia characterized by elevation in triglycerides, low LDL. 6. Type 1 diabetes Impression: After reviewing diagnostic angiograms in reviewing metabolic profile. Would recommend attempted complete revascularization with PCI and stenting of the left main coronary artery into the circumflex. This with optimal medical therapy would create the best result at this time. Pending improvement in LV function considerations for ICD. In the short term would recommend life vest in light of presentation. Discussed this with the patient' s family. Will proceed in the morning. Plan: Optimization of medical therapy. Up titration of Coreg. Optimization of statin therapy. PCI and stenting of the left main coronary artery. Life vest. 01/31/17 16:35 Impression: Successful revascularization today of the left main and proximal circumflex. Uneventful campus monitor overnight. Patient is overall feeling well. Plan to continue dual antiplatelet therapy for 1 year. Increased beta-martin today. Awaiting decision regarding LifeVest. Plan: Continue dual antiplatelet therapy for 1 year. Up titrate beta-martin. Life vest for boarded sudden and ischemic cardiomyopathy status post left main stenting. Discussed weight loss today and aggressive treatment of hyperlipidemia particular elevated triglycerides. Will begin high-dose fish oil today. 02/01/17 09:37 Impression: Day 4 status post aborted sudden in the setting of global ischemia non-Q-wave myocardial infarction. Patient is doing well post revascularization yesterday with a brief episode of either anxiety versus mild pulmonary edema. He has responded well to Lasix and increase in anti anxiety therapy. He is awaiting ICD today. Plan: Continue dual antiplatelet therapy. Low-dose diuretic therapy. ICD today in light of incomplete revascularization and aborted sudden . High-dose fish oil associated with weight loss. 02/02/17 07:47 Subjective: Doing well, no further episodes of shortness of breath after diuretic therapy. He had no PND orthopnea. He has had no syncope or near syncope. He denies chest pain. Denies fever or chills Objective: Vital Signs Temp Pulse Resp BP Pulse Ox 36.9 C 79 16 109/61 94 02/02/17 04:00 02/02/17 04:00 02/02/17 04:00 02/02/17 04:00 02/02/17 04:00 Laboratory Results 02/02/17 03:26 02/02/17 03:26 02/01/17 02/02/17 02/03/17 05:59 05:59 05:59 Intake Total 650 950 Output Total 1875 Balance 650 -925 PT 14.2 SEC (12.0-15.0) 02/02/17 03:26 INR 1.11 (0.83-1.16) 02/02/17 03:26 Physical Exam - Physical Exam General Appearance: alert, no apparent distress EENT: PERRL/EOMI, normal ENT inspection Neck: non-tender, full range of motion Respiratory: chest non-tender, rales, No lungs clear Cardiac/Chest: normal peripheral pulses, No edema, No gallop, No JVD Abdomen: normal bowel sounds, non-tender, soft Back: Normal inspection Skin: normal color, warm/dry Lymphatic: no adenopathy Extremities: normal range of motion Neuro/Psych: no motor/sensory deficits, alert, normal mood/affect ICD10 Worksheet Patient Problems: Problems Problem Status Onset Acute [place] Acute Review of Systems - Review of Systems Constitutional: denies: chills, fever EENTM: no symptoms reported Respiratory: no symptoms reported Cardiac: no symptoms reported Gastrointestinal/Abdominal: no symptoms reported Genitourinary: no symptoms Musculoskelatal: no symptoms Skin: no symptoms Neurological: no symptoms Hematologic/Lymphatic: no symptoms reported Immunologic/allergic: no symptoms reported All Other Systems: Reviewed and Negative
[2017-02-02] MEDS: CARVEDILOL 6.25 MG TAB PO SCH ×2 (07:53→18:22)
[2017-02-02] MEDS: PRASUGREL HCL 10 MG TAB PO SCH (07:54)
--- NOTE | 2017-02-02 08:46 | CPEKG ---
Heart Rate: 70 RR Interval: 857 P-R Interval: 208 QRSD Interval: 118 QT Interval: 400 QTC Interval: 432 P [place]: 45 QRS [place]: 35 EKG Severity - ABNORMAL ECG - EKG Impression: SINUS RHYTHM EKG Impression: PROBABLE LEFT ATRIAL ABNORMALITY EKG Impression: NONSPECIFIC INTRAVENTRICULAR CONDUCTION DELAY EKG Impression: PROBABLE INFERIOR INFARCT, AGE INDETERMINATE EKG Impression: ANTERIOR ST ELEVATION CONTINUES TO BE NOTED Electronically Signed By: Sohail Neves 02-Feb-2017 12:21:06
[2017-02-02] MEDS ORDERED: LIDOCAINE 1% 300 MG/30 ML SDV ONE ×2 (11:28→14:20)
[2017-02-02] MEDS ORDERED: ISOPROTERENOL HCL 0.2 MG/ML 5ML AMP ONE (11:28)
[2017-02-02] MEDS ORDERED: HEPARIN 10,000 UNIT/10 ML MDV ONE (11:28)
[2017-02-02] MEDS ORDERED: BUPIVACAINE 0.5% 30 ML SDV ONE ×2 (11:29→14:20)
[2017-02-02] MEDS: ASPIRIN EC 325 MG TAB PO SCH (12:32)
[2017-02-02] MEDS: INSULIN LISPRO 100 UNIT/ML SC SCH ×2 (12:33→18:23)
[2017-02-02] MEDS: FUROSEMIDE 40 MG TAB PO SCH (12:33)
[2017-02-02] MEDS: OMEGA-3 ETHYL EST-LOVAZA 1 GM CAP PO SCH ×2 (12:34→23:01)
[2017-02-02] MEDS ORDERED: MIDAZOLAM 2 MG/2 ML VIAL ONE ×2 (13:19→13:39)
[2017-02-02] MEDS ORDERED: fentaNYL 100 MCG/2 ML INJ ONE ×3 (13:21→15:42)
[2017-02-02] MEDS ORDERED: DEXMEDETOMIDINE HCL 200 MCG/2 ML VIAL IV ONE (13:25)
[2017-02-02] MEDS ORDERED: PROPOFOL/EMULSION 500 MG/50 ML BOTTLE IV ONE (13:26)
[2017-02-02] MEDS ORDERED: DIAZEPAM 10 MG/2 ML SYR ONE (14:08)
[2017-02-02] MEDS ORDERED: LIDO/EPI 1% **for epidural** 30 ML SDV ONE (14:20)
[2017-02-02] MEDS ORDERED: LIDOCAINE 2% 5 ML SDV ONE (15:09)
[2017-02-02] MEDS ORDERED: PHENYLEPHRINE HCL 100 MCG/ML SYR ONE ×2 (15:09→16:00)
[2017-02-02] MEDS ORDERED: OXYCODONE/APAP 5/325 TAB PO PRN (16:10)
--- NOTE | 2017-02-02 16:55 | CPEKG ---
Heart Rate: 68 RR Interval: 882 P-R Interval: 204 QRSD Interval: 116 QT Interval: 380 QTC Interval: 405 P [place]: 25 QRS [place]: 35 T Wave [place]: 36 EKG Severity - ABNORMAL ECG - EKG Impression: SINUS RHYTHM EKG Impression: NONSPECIFIC INTRAVENTRICULAR CONDUCTION DELAY EKG Impression: PROBABLE INFERIOR INFARCT, AGE INDETERMINATE Electronically Signed By: Sohail Neves 02-Feb-2017 20:54:25
[2017-02-02 17:32] LABS: ANION GAP 8 mEq/L (8-16); CALCIUM 8.7 mg/dL (8.5-10.4); CARBON DIOXIDE 26 mEq/l (22-31); CHLORIDE 103 mEq/L (97-110); CREATININE 1.4 mg/dL (0.7-1.3); GLOMERULAR FILTRATION RATE 52; GLUCOSE 170 mg/dL (70-100); MAGNESIUM 1.8 mg/dL (1.6-2.3); POTASSIUM 5.8 mEq/L (3.5-5.2); SODIUM 137 mEq/L (134-144)
[2017-02-02] MEDS: traMADol 50 MG TAB PO PRN (18:04)
[2017-02-02] MEDS: ROSUVASTATIN CALCIUM 40 MG TAB PO SCH (22:59)
[2017-02-02] MEDS: PARoxetine HCL 20 MG TAB PO SCH (22:59)
[2017-02-02] MEDS: LISINOPRIL 20 MG TAB PO SCH (23:01)
[2017-02-02] MEDS: ARIPiprazole 5 MG TAB PO SCH (23:02)
[2017-02-02] MEDS: FENOFIBRATE 145 MG TAB PO SCH (23:02)
[2017-02-03] MEDS: Insulin Degludec [Tresiba Flextouch U-100] 60 UNIT SQ SCH (00:22)
[2017-02-03 04:17] VITALS: O2SAT 95
[2017-02-03 04:40] LABS: % IMMATURE GRANULYOCYTES 0.3 % (0.0-1.1); ABSOLUTE IMMATURE GRANULOCYTES 0.03 10^3/uL (0.00-0.10); ADD DIFF? NO; ADD MORPH? NO; ADD SCAN? NO; ATYPICAL LYMPHOCYTE FLAG 0 (0-99); FRAGMENT RBC FLAG 0 (0-99); HEMATOCRIT 45.7 % (40.0-51.0); LEFT SHIFT FLG 0 (0-99); LIPEMIA HEMOLYSIS FLAG 80 (0-99); MEAN CELL HEMOGLOBIN 29.9 pg (27.9-34.1); MEAN CELL HEMOGLOBIN CONCENTR. 32.8 g/dL (32.4-36.7); MEAN PLATELET VOLUME 11.5 fL (8.7-11.7); PLATELET CLUMPS FLAG 10 (0-99); PLATELET COUNT 172 10^3/uL (150-400); RED BLOOD CELL COUNT 5.02 10^6/uL (4.40-6.38); RED CELL DISTRIBUTION WIDTH 14.5 % (11.5-15.2)
[2017-02-03 04:52] LABS: INR 1.15 (0.83-1.16); PROTIME(PATIENT) 14.6 SEC (12.0-15.0)
[2017-02-03 05:08] LABS: ANION GAP 6 mEq/L (8-16); CARBON DIOXIDE 25 mEq/l (22-31); CHLORIDE 105 mEq/L (97-110); CREATININE 1.2 mg/dL (0.7-1.3); GLOMERULAR FILTRATION RATE > 60; GLUCOSE 171 mg/dL (70-100); POTASSIUM 5.5 mEq/L (3.5-5.2); SODIUM 136 mEq/L (134-144)
[2017-02-03 05:14] LABS: CK-MB INTERPRETATION NEGATIVE (NEGATIVE)
[2017-02-03 05:17] LABS: CREATINE KINASE-MB FRACTION 4.48 ng/mL (0-3.19)
[2017-02-03 07:11] VITALS: BP 93/63; PULSE 83; RESP 14; TEMP 97.9
[2017-02-03] MEDS: INSULIN LISPRO 100 UNIT/ML SC SCH (08:02)
[2017-02-03] MEDS: traMADol 50 MG TAB PO PRN (08:35)
[2017-02-03] MEDS: OMEGA-3 ETHYL EST-LOVAZA 1 GM CAP PO SCH (08:35)
[2017-02-03] MEDS: PRASUGREL HCL 10 MG TAB PO SCH (08:35)
[2017-02-03] MEDS: ASPIRIN EC 325 MG TAB PO SCH (08:36)
[2017-02-03] MEDS: FUROSEMIDE 40 MG TAB PO SCH (08:36)
--- NOTE | 2017-02-03 08:39 | CPEKG ---
Heart Rate: 77 RR Interval: 779 P-R Interval: 168 QRSD Interval: 120 QT Interval: 368 QTC Interval: 417 P [place]: 60 QRS [place]: 41 T Wave [place]: -6 EKG Severity - ABNORMAL ECG - EKG Impression: SINUS RHYTHM EKG Impression: NONSPECIFIC INTRAVENTRICULAR CONDUCTION DELAY EKG Impression: PROBABLE INFERIOR INFARCT, AGE INDETERMINATE Electronically Signed By: Seven Pacheco 03-Feb-2017 08:57:40
[2017-02-03] MEDS: CARVEDILOL 6.25 MG TAB PO SCH (08:46)
--- NOTE | 2017-02-03 13:09 | EPPROC ---
Electrophysiology Procedure Note: PROCEDURE PERFORMED: 1. Implantation of an A-V Implantable Cardioverter Defibrillator 2. Subclavian vein angiography 3. Fluoroscopy INDICATION: Thisis a 56 yr old male who collapsed during a 10K run. He was brought to the ER and underwent cath and PCI. However, complete revascularization could not be performed. The pt has known inferior wall scar and EF 40% and hence there was a concern that his syncope may be ventricular arrhythmia related. Hence it was decided to perform EP study to look for inducible VT. The pt had very easily inducible monomorphic VT at 600/290/250ms and hence it was decided to implant an ICD. Since the pt had prolopnged AV block during EP study it was decided to perform dual chamber ICD ____ PROCEDURE NOTE: Patient presented to the cardiac catheterization laboratory in a fasting, postabsorptive state. The left infraclavicular area was prepped and draped in the usual sterile fashion. General anesthesia was administered. Lidocaine plus bupivacaine was used for local anesthesia. Left subclavian venography was performed by injection of iodinated contrast into the left antecubital vein. This was done to assure patency of the vein and also to assess for any anatomical aberrations. Using a combination of blunt and sharp dissection and electrocautery, the dissection was carried down to the prepectoral fascia. All bleeding was controlled with electrocautery. The pocket was packed with gauze soaked in antibiotic solution. Fluoroscopy was utilized during the entire procedure for venous access and placement of the leads. Using a direct stick technique the left extrathoracic axillary vein was accessed with 1 sticks using the modified Seldinger technique. Placement of the guide wires into the venous system was confirmed by low pressure blood return and also by visualizing the guide wires advancing into the inferior vena cava. A purse string suture was applied around the guide wires. #11 Fr and #7 Fr sheaths were advanced under fluoroscopic guidance over the guide wires. An active fixation ventricular ICD lead was advanced into the right ventricular apex and screwed in place. An active fixation atrial lead was advanced into the right atrial appendage and screwed in place. The peel away sheaths were removed. Pacing thresholds, sensing parameters and leads impedances were measured. There was no diaphragmatic stimulation at maximum output. The leads were sutured to the prepectoral fascia with 3 non-absorbable sutures. Pocket was created, it was flushed using antibiotic solution. With much difficulty hemostasis was achieved. The pocket was again inspected for any bleeding. The leads were attached to the ICD securely. The ICD was inserted into the pocket and secured in place with a nonabsorbable suture. Fluoroscopy was performed in DIALLO and JUSTO planes to verify right sided placement of the leads. Also fluoroscopy of the ICD pocket was performed. Defibrillation testing was performed. The ICD pocket was closed in 3 layers with absorbable monocryl sutures.. Appropriate dressing was applied. The patient left the cardiac catheterization laboratory in stable condition. Serial Numbers: 1. Device Biotronik I[place]ia 7 SN [id number] 2. Atrial Lead Biotronik Solia S53 SN [id number] 3. Ventricular Lead Biotronik Protego S 65 SN [id number] Stimulation Thresholds & Impedance Measurements: 1. Atrial Lead 3.1mV, 0.6@0.4ms, 549Ohms 2. Ventricular Lead 10.9 mV, 0.4@0.4ms, 737Ohms Pacing Parameters: 1. Pacing mode DDD 2. Lower rate 60 3. Upper tracking rate 120 4. Upper sensor rate 120 Tachycardia therapy parameters: VF zone: Detection 214 bpm First therapy 40 Joule Subsequent therapies 40 Joule VT zone: Detection 183 bpm First therapy burst pacing at 84% tachycardia CL, 8 beats,2 sequences Second therapy 40 Joule Subsequent therapies 40 Joule Patient Problems: Problems Problem Status Onset Acute [place] Acute
--- NOTE | 2017-02-03 13:14 | EPPROC ---
Electrophysiology Procedure Note: DIAGNOSTIC ELECTROPHYSIOLOGIC STUDY Procedures performed: 1. Fluoroscopy 3. 92581-22 EP evaluation with RA/RV pace record, insert/reposition catheter, with arrhythmia induction INDICATION: This is a 56 yr old who has known CAD and collapsed after a 10K run/walk. The etiology of his collapse was unknown. In view of previous inferior wall WA and CAD, with EF 40% it was decided to perform EP study to eval of inducible VT as etiology for syncope PROCEDURE: Catheters & Anesthesia: The patient arrived in the Electrophysiology Laboratory in the fasting state. The right clavicular region, right groin, & left groin area were prepped & draped in the usual sterile manner. Moderate sedation was administered by anesthesiologist. Appropriate non-invasive blood pressure, pulse oximetry & end -tidal CO2 monitoring was established. All catheters were placed percutaneously using the modified Seldinger technique , and advanced into position under fluoroscopic guidance. . One #7 [place] deflectable decapolar catheter was advanced to the anteroseptal right ventricle via the right femoral vein. Programmed stimulation was performed from the right atrium, right ventricle Pt had complete AV block when we were placing catheter in the RV. It resolved on its own after we had started external pacing. Ventricular programmed stimulation was performed using standard protocol (2 pacing sites, 2 basic cycle lengths, up to 3 extrastimuli at twice pacing threshold). At 600/290/240ms, VT at 250ms was induced without the use of drugs. The catheters were removed. Vascular access sheaths were removed There were no apparent complications. Results: VERP 600/240ms CONCLUSIONS 1. Easily induced paroxysmal AV block 2: Easily induced monomorphic VT Patient Problems: Problems Problem Status Onset Acute [place] Acute
--- NOTE | 2017-02-03 14:42 | GDS ---
[f rep st] DISCHARGE SUMMARY DISCHARGE DIAGNOSES: 1. Acute ST-elevation myocardial infarction status post PCI to the left main and to the left circum flex on 02/01/2017. 2. Syncope, with likely aborted sudden . 3. Known severe 3 vessel coronary artery disease with patent left internal mammary artery to left a nterior descending. Previous coronary artery bypass grafts in 2002, and redo CABG in 2011. 4. Ischemic cardiomyopathy with an ejection fraction of 35% to 40%. 5. Status post implantable cardioverter defibrillator implantation in this admission. PROCEDURES: 1. Chest x-ray. 2. 01/30/2017, echocardiogram which shows EF of 35% to 40%, basilar anteroseptal akinesis Maze, bas ilar to mid inferolateral hypokinesis. Inferior hypokinesis. 3. 01/30/2017, left heart catheterization with Dr. Chavez which showed 3 vessel coronary disease wi th patent MEJÍA to LAD, occluded SVG to right coronary artery, occluded free right internal mammary t o the left posterior lateral branch, occluded radial to the circumflex coronary artery, saphenous ve in graft to diagonal artery is known to be occluded previously, and so was not injected. 4. 02/01/2017, echocardiogram which showed a limited study to look at ejection fraction which was s till 35% to 40%. 5. 02/01/2017, left heart catheterization with percutaneous intervention, with stenting to the left main and to the proximal circumflex. 6. 02/02/2017, electrophysiologic study which found easily induced paroxysmal AV block, easily dev sheila monomorphic VT. 7. Implantation of AV implanted cardiac cardioverter-defibrillator. BRIEF HISTORY: Please see dictated H and P for complete details. 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 Symptoms worsened and he experienced a sudden syncopal spell. He experienced only 30 seco nds of loss of consciousness. He was taken over to EMS, who brought him in as a cardiac alert. He was found to have ST elevations and was taken to the cardiac catheterization laboratory, where he wa s found to have very extensive coronary artery disease. He had a patent MEJÍA to LAD, but occluded l eft main to the circumflex, which was stented. Due to his sudden , he proceeded to EP study wh ich found easily inducible VT. He, therefore, had ICD implantation in this admission. On day of discharge, patient denies any significant wrist site pain. He does note some pain at the pacemaker ICD site. PHYSICAL EXAM: VITAL SIGNS: On day of discharge, blood pressure 93/63, heart rate 83, respirations 14, O2 saturation 95% on 3 L/minute, temp of 97.9 degrees Fahrenheit. GENERAL: He is a very pleas ant male in no apparent distress. EYES: PERRL. HEART: Regular rate and rhythm. LUNGS: Clear to auscultation bilaterally. EXTREMITIES: Right wrist site without ecchymosis, full radial pulse is present. Left pacer site without erythema or saturation of dressing. LABORATORY DATA: CBC with WBC of 9.23, hemoglobin 15, hematocrit 45.7, platelet count was 72. BMP w ith sodium 136, potassium 5.5, chloride 105, CO2 25, BUN 23, creatinine 1.2. Glucose 171. RESULTS PENDING: None. DIET: Cardiac and diabetic diet recommended. DISCHARGE MEDICATIONS: Please see med reconciliation. He will be continued on his home Tarceva, in sulin, Humalog lispro, Abilify, rosuvastatin, paroxetine, fenofibrate. His lisinopril dose has been decreased to 10 mg at bedtime. He is given a short prescription of tramadol. He has been started on aspirin 325 p.o. daily, Effient 10 mg p.o. daily, Lovaza 2 g p.o. twice daily, carvedilol 6.25 tw ice daily. DISCHARGE INSTRUCTIONS: 1. Pacemaker and right wrist precautions were reviewed. 2. Follow up in [facility] in 1 week's time. 3. Follow up BMP in 1 week's time. 4. Follow up with Dr. Chavez or Dr. Kraft in 1 month's time. Please note that greater than 30 minutes was spent on discharge and coordination of care. /[id number]/MODL
== END 2017-02-03 10:50 | disposition home or self-care (01) | DRG 245 ==
LOC: F2N 12:38 → F2W 01-31 17:08
PROVIDERS: ADMIT Internal Medicine Cardiovascular Disease; ATTEND Internal Medicine Cardiovascular Disease
PROC: B2151ZZ Fluoroscopy of Left Heart using Low Osmolar Contrast (ICD-10-PCS; 2017-01-30)
PROC: B2131ZZ Fluoroscopy of Multiple Coronary Artery Bypass Grafts using Low Osmolar Contrast (ICD-10-PCS; 2017-01-30)
PROC: B2111ZZ Fluoroscopy of Multiple Coronary Arteries using Low Osmolar Contrast (ICD-10-PCS; 2017-02-01)
PROC: 027034Z Dilation of Coronary Artery, One Artery with Drug-eluting Intraluminal Device, Percutaneous Approach (ICD-10-PCS; 2017-02-01)
PROC: 4A023N7 Measurement of Cardiac Sampling and Pressure, Left Heart, Percutaneous Approach (ICD-10-PCS; 2017-02-01)
PROC: 02HK3JZ Insertion of Pacemaker Lead into Right Ventricle, Percutaneous Approach (ICD-10-PCS; principal; 2017-02-03)
PROC: 0JH609Z Insertion of Cardiac Resynchronization Defibrillator Pulse Generator into Chest Subcutaneous Tissue and Fascia, Open Approach (ICD-10-PCS; principal; 2017-02-03)
PROC: 02H63JZ Insertion of Pacemaker Lead into Right Atrium, Percutaneous Approach (ICD-10-PCS; principal; 2017-02-03)
DX: I21.3 ST elevation (STEMI) myocardial infarction of unspecified site (principal); I25.810 Atherosclerosis of coronary artery bypass graft(s) without angina pectoris; E10.9 Type 1 diabetes mellitus without complications; E78.5 Hyperlipidemia, unspecified; I10 Essential (primary) hypertension; I25.5 Ischemic cardiomyopathy
CPT/HCPCS: 82947-QW; A4649; C1725; C1730; C1753; C1760; C1769; C1874; C1887; C9600; J0690; J1200; J1644; J1815; J1940; J2250; J2370; J2704; J3010; Q9967